=== PATIENT | male | born 1995 ===

== ENCOUNTER 2017-04-17 01:07 | Emergency (ER) | payer SELFPAY ==
[2017-04-17 01:43] VITALS: BP 126/73; PULSE 54; RESP 17; TEMP 98.7; O2SAT 100
[2017-04-17] MEDS ORDERED: Oxycodone/Acetaminophen 5/325 mg Tab PO ONE (01:50)
--- NOTE | 2017-04-17 02:06 | ED PDOC ---
HPI: Skin/Bite Injury Time Seen by Provider: 04/17/17 01:44 Chief Complaint (Nursing): Abnormal Skin Integrity Chief Complaint (Provider): painful lump to back History Per: Patient History/Exam Limitations: no limitations Onset/Duration Of Symptoms: Days (3) Current Symptoms Are (Timing): Still Present Location Of Injury: Left: Back Quality Of Symptoms: Painful Additional History Per: Patient Additional Complaint(s): 22 y/o male presents for eval of painful lump to mid back x 3 days. Patient states started as "pimple", mother tried to pop it with small amount of discharge that came out. Patient notes area to have grown since then. Denies fever, nausea/vomiting. Past Medical History Reviewed: Historical Data, Nursing Documentation, Vital Signs Vital Signs: Last Vital Signs Temp 98.7 F 04/17/17 01:29 Pulse 54 L 04/17/17 01:29 Resp 17 04/17/17 01:29 BP 126/73 04/17/17 01:29 Pulse Ox 100 04/17/17 01:29 - Medical History PMH: Anxiety - Surgical History Surgical History: Appendectomy - Family History Family History: States: Unknown Family Hx - Immunization History Hx Tetanus Toxoid Vaccination: No Hx Influenza Vaccination: No - Home Medications Home Medications: Ambulatory Orders Medication Instructions Recorded Lidocaine 2% Viscous 15 ml MM Q4 PRN #1 bottle 11/08/15 Clindamycin [Cleocin] 300 mg PO QID #27 cap 04/17/17 traMADol [Ultram] 50 mg PO Q8 PRN #12 tab 04/17/17 - Allergies Allergies/Adverse Reactions: Allergies Allergy/AdvReac Type Severity Reaction Status Date / Time No Known Allergies Allergy Verified 04/23/16 10:39 Review of Systems ROS Statement: Except As Marked, All Systems Reviewed And Found Negative Musculoskeletal: Positive for: Back Pain (painful lump to back) Physical Exam - Reviewed Nursing Documentation Reviewed: Yes Vital Signs Reviewed: Yes - Physical Exam Appears: Positive for: Well, Non-toxic, No Acute Distress Back: Positive for: Other (1x1cm superficial nonfluctuant mass with central dried lesion mid/left back. Mild surrounding erythema, tenderness. No active drainage. ) Extremity: Positive for: Normal ROM Neurologic/Psych: Positive for: Alert, Oriented. Negative for: Motor/Sensory Deficits - ECG O2 Sat by Pulse Oximetry: 100 - Progress ED Course And Treament: Percocet PO, Clindamycin PO Bacitracin applied to area, wound bandaged. Patient educated on findings, discharged with rx tramadol, clindamycin. Patient educated on risk of narcotic abuse/dependence/overdose; advised to take as needed for severe pain only, otherwise advised Ibuprofen PRN moderate pain. Patient demonstrates full understanding. Advised warm compresses 3-5x daily, follow up in 48 hours for wound check. Return to ED sooner for fever, increased pain/redness from site, or other concerning symptoms. Disposition - Clinical Impression Clinical Impression: Abscess of back, Cellulitis - Patient ED Disposition Is Patient to be Admitted: No Counseled Patient/Family Regarding: Diagnosis, Need For Followup, Rx Given - Disposition Disposition: Routine/Home Disposition Time: 02:07 Condition: STABLE Prescriptions: Clindamycin [Cleocin] 300 mg PO QID #27 cap traMADol [Ultram] 50 mg PO Q8 PRN #12 tab PRN Reason: Pain, Severe (8-10) Instructions: Cellulitis (ED), Abscess (ED)
== END 2017-04-17 03:00 | disposition home or self-care (01) ==
LOC: H.ER 01:07
DX: L02.212 Cutaneous abscess of back [any part, except buttock and flank] (principal); F41.9 Anxiety disorder, unspecified